=== PATIENT | female | born 1990 | race Caucasian/White ===

== ENCOUNTER → 2023-05-09 15:51 | Outpatient (REF) | payer OTHER, SELFPAY | LOC: PNTC 15:51 | PROVIDERS: ATTENDING PHYSICIAN Obstetrics & Gynecology | DX: O99.280 Endocrine, nutritional and metabolic diseases complicating pregnancy, unspecified trimester (principal); O34.40 Maternal care for other abnormalities of cervix, unspecified trimester | CPT/HCPCS: 76811; 76817 ==

== ENCOUNTER → 2023-06-18 06:48 | Outpatient (REF) | payer OTHER, SELFPAY | LOC: PNTC 06:48 | PROVIDERS: ATTENDING PHYSICIAN Obstetrics & Gynecology | DX: O99.280 Endocrine, nutritional and metabolic diseases complicating pregnancy, unspecified trimester (principal) | CPT/HCPCS: 76816 ==

== ENCOUNTER → 2023-07-30 06:53 | Outpatient (REF) | payer OTHER, SELFPAY | LOC: PNTC 06:53 | PROVIDERS: ATTENDING PHYSICIAN Obstetrics & Gynecology | DX: O99.280 Endocrine, nutritional and metabolic diseases complicating pregnancy, unspecified trimester (principal); O34.40 Maternal care for other abnormalities of cervix, unspecified trimester | CPT/HCPCS: 76816 ==

== ENCOUNTER 2023-09-12 06:18 | Inpatient (IN) | payer OTHER, SELFPAY ==
[2023-09-12] MEDS: LR 1000 IV ×3 (06:30→12:05)
[2023-09-12 06:51] VITALS: BP 124/66; BMI 23.3
[2023-09-12 07:22] LABS: % Basophils 0.2 % (0-2); % Eosinophils 0.5 % (0-6); % Immature Granulocytes 0.9 % (0-0.5); % Lymphocytes 23.3 % (20.5-51.1); % Monocytes 6.9 % (1.7-9.3); % Neutrophils 68.2 % (42.2-75.2); Absolute Eosinophils 0.1 10^3/uL (0-0.7); Absolute Immature Granulocytes 0.1 10^3/uL (0-0.05); Absolute Lymphocytes 2.5 10^3/uL (1.2-3.4); Absolute Monocytes 0.8 10^3/uL (0.1-0.6); Absolute Neutrophils 7.4 10^3/uL (1.4-6.5); Hematocrit 35.8 % (37.0-47.0); Hemoglobin 12.9 g/dL (12.0-16.0); Mean Corpuscular Hgb 32.5 pg (27.0-31.0); Mean Corpuscular Volume 90.2 fL (81.0-99.0); Nucleated Red Blood Cells % 0 %; Platelet Count 207 10^3/uL (130-400); Red Blood Cell Count 3.97 10^6/uL (4.20-5.40); Red Cell Dist. Width 12.2 % (11.5-14.5); White Blood Cell Count 10.8 10^3/uL (4.8-10.8)
[2023-09-12] MEDS: SUBLIMAZE 100 MCG EPIDURAL (07:52)
[2023-09-12] MEDS: FENTANYL/BUPIVACAINE 100 EPIDURAL (07:52)
[2023-09-12] MEDS: PITOCIN 30 UNITS/NSS 500 ML IV (14:10)
[2023-09-12] MEDS: MOTRIN 600 MG PO (17:01)
[2023-09-12] MEDS: TYLENOL 650 MG PO (17:01)
[2023-09-12] MEDS: SENOKOT-S 1 TABLET PO (17:01)
[2023-09-13] MEDS: SYNTHROID 37.5 MCG PO (05:50)
[2023-09-13 06:21] LABS: Hematocrit 31.1 % (37.0-47.0); Hemoglobin 10.8 g/dL (12.0-16.0)
[2023-09-13] MEDS: PRENATAL PLUS 1 TABLET PO (08:04)
[2023-09-13] MEDS: MOTRIN 600 MG PO ×3 (08:06→23:03)
[2023-09-13] MEDS: TYLENOL 650 MG PO ×4 (08:06→23:02)
[2023-09-13 16:30] LABS: Syphilis/T. pallidum Ab Reflex Negative (Negative)
[2023-09-13] MEDS: SENOKOT-S 1 TABLET PO (17:32)
[2023-09-14] MEDS: SYNTHROID 37.5 MCG PO (05:50)
[2023-09-14] MEDS: TYLENOL 650 MG PO (05:50)
[2023-09-14] MEDS: MOTRIN 600 MG PO (05:50)
[2023-09-14] MEDS: PRENATAL PLUS 1 TABLET PO (09:03)
== END 2023-09-14 13:00 | disposition home or self-care (01) | DRG 807 ==
LOC: LDRP 06:18
PROVIDERS: Obstetrics & Gynecology; ADMITTING PHYSICIAN Obstetrics & Gynecology
PROC: 10E0XZZ Delivery of Products of Conception, External Approach (ICD-10-PCS; 2023-09-12)
PROC: 0KQM0ZZ Repair Perineum Muscle, Open Approach (ICD-10-PCS; 2023-09-12)
DX: O99.284 Endocrine, nutritional and metabolic diseases complicating childbirth (principal); Z37.0 Single live birth; O70.1 Second degree perineal laceration during delivery; E03.9 Hypothyroidism, unspecified; Z3A.38 38 weeks gestation of pregnancy
CPT/HCPCS: 36415; 83789; 85014; 85018; 85025; 86780; 86850; 86900; 86901